=== PATIENT | male | born 1980 | race Caucasian/White ===

== ENCOUNTER 2016-11-18 03:39 | Observation (INO) | payer SELFPAY ==
[2016-11-18] MEDS ORDERED: Midazolam 2 MG/2 ML VIAL ONE (03:40)
[2016-11-18 03:49] VITALS: BMI 23.6
[2016-11-18] MEDS ORDERED: Midazolam 2 MG/2 ML VIAL IM ONE (03:49)
[2016-11-18 04:06] LABS: BASO % 0.8 % (0.0-2.0); EOS # 0.1 K/uL (0.0-0.7); EOS % 1.4 % (0.0-4.0); HEMATOCRIT 42.2 % (35.0-51.0); LYMPH # 1.6 K/uL (1.0-4.3); LYMPH % 27.8 % (20.0-40.0); MEAN CELL VOLUME 90.6 fl (80.0-94.0); MEAN CORPUSCULAR HGB CONC 34.2 g/dL (33.0-37.0); MEAN PLATELET VOLUME 9.3 fl (7.2-11.7); MONO # 0.4 K/uL (0.0-0.8); MONO % 7.1 % (0.0-10.0); NEUT # 3.7 K/uL (1.8-7.0); NEUT % 62.9 % (50.0-75.0); NRBC % 0.2 % (0.0-0.0); RED CELL DISTRIBUTION WIDTH 12.8 % (11.5-14.5); WHITE BLOOD COUNT 5.9 K/uL (4.8-10.8)
[2016-11-18 04:13] LABS: ALB/GLOB RATIO 1.7 (1.0-2.1); ALCOHOL SERUM 231 mg/dl (0-10); ALKALINE PHOSPHATASE 74 U/L (38-126); ALT/SGPT 41 U/L (21-72); AST/SGOT 49 U/L (17-59); BLOOD UREA NITROGEN 10 mg/dl (9-20); CARBON DIOXIDE 16 mmol/L (22-30); CHLORIDE 108 mmol/L (98-107); GFR AFRICAN-AMERICAN > 60; GLUCOSE,RANDOM 125 mg/dL (75-110); POTASSIUM 3.7 MMOL/L (3.6-5.0); SODIUM 148 mmol/l (132-148); TOTAL PROTEIN 7.6 G/DL (6.3-8.2)
--- NOTE | 2016-11-18 04:55 | ED PDOC ---
HPI: Psych/Substance Abuse Time Seen by Provider: 11/18/16 03:41 Chief Complaint (Nursing): Alcohol Ingestion Chief Complaint (Provider): intoxicated, agitated and combative ED Caveat: Intoxicated History Per: EMS (police) History/Exam Limitations: intoxication Onset/Duration Of Symptoms: Unknown Current Symptoms Are (Timing): Still Present Modifying Factor(s): Alcohol Severity: Severe Associated Symptoms: Agitation, Paranoia Involuntary Hold By: Local Law Enforcement Additional Complaint(s): 36yo male arrives under police custody per report EMS called to apartment for intoxicated combative male. On arrival to ED patient w poor insight, paranoid and combative, attempting to bite staff and spit. History limited due to agitation. Per police no reports of trauma. Past Medical History Reviewed: Historical Data, Nursing Documentation, Vital Signs Vital Signs: Last Vital Signs Temp Pulse 87 11/18/16 04:26 Resp 16 11/18/16 04:26 BP 99/72 L 11/18/16 04:26 Pulse Ox 96 11/18/16 04:26 - Medical History PMH: Denies: Diabetes, Hepatitis, HIV, HTN, Seizures, Sexually Transmitted Disease Other PMH: unknown/ unable to obtain - Surgical History Other surgeries: unable to obtain - Family History Family History: States: Unknown Family Hx - Living Arrangements Living Arrangements: Other (unknown) - Allergies Allergies/Adverse Reactions: Allergies Allergy/AdvReac Type Severity Reaction Status Date / Time No Known Allergies Allergy Verified 05/28/16 00:00 Review of Systems Review Of Systems: ROS cannot be obtained secondary to pt's inabilty to answer questions. Physical Exam - Reviewed Nursing Documentation Reviewed: Yes Vital Signs Reviewed: Yes - Physical Exam Appears: Positive for: Uncomfortable (agitated and screaming, physically assaultive towards staff and police) Head Exam: Positive for: ATRAUMATIC, NORMAL INSPECTION, NORMOCEPHALIC Skin: Positive for: Warm, Diaphoresis (mild given agitation). Negative for: Cyanosis Eye Exam: Positive for: Normal appearance, EOMI, PERRL. Negative for: Periorbital swelling ENT: Positive for: Normal ENT Inspection Neck: Positive for: Normal, Painless ROM Cardiovascular/Chest: Positive for: Regular Rate, Rhythm Respiratory: Positive for: CNT, Normal Breath Sounds Gastrointestinal/Abdominal: Positive for: Bowel Sounds, Soft. Negative for: Tenderness Back: Positive for: Normal Inspection Extremity: Positive for: Normal ROM, Other (scattered abrasions). Negative for : Deformity, Swelling Neurologic/Psych: Positive for: Alert, Mood/Affect (agitated), Gait (unable to assess), Other (poor insight, strength 5/5 all ext). Negative for: Motor/ Sensory Deficits, Aphasia - Laboratory Results Result Diagrams: 11/18/16 04:03 11/18/16 04:03 - ECG O2 Sat by Pulse Oximetry: 96 Medical Decision Making Medical Decision Making: pt arrived in restraints from police and transferred to [facility], required relief of agitation with haldol and versed (ativan not currently available in hospital). SPO2 maintained 96%. Restraints maintained until medications relieved agitation , then removed. Prior charts reviewed for further history. Bloodwork ordered and reviewed. etoh elevated. Chem c/w mild dehydration. Disposition - Clinical Impression Clinical Impression: Alcohol abuse, Agitation - Patient ED Disposition Is Patient to be Admitted: Transfer of Care - Disposition Disposition: Transfer of Care Disposition Time: 07:00 Condition: FAIR Patient Signed Over To: Aarti Solomon Handoff Comments: pending sobriety and re-eval, dispo.
--- NOTE | 2016-11-18 07:12 | ED PDOC ---
- Laboratory Results Result Diagrams: 11/18/16 04:03 11/18/16 04:03 - ECG O2 Sat by Pulse Oximetry: 96 Medical Decision Making Medical Decision Making: Time: 07 Patient signed out by Dr. York pending sobriety. Patient is in custody of police, pending medical and psychiatric clearance Time: 07 Patient awoke from sleep, became aggressive and violent towards staff. Placed in restraints for patient and staff safety. Time: 1240 CT results reviewed PROCEDURE: CT HEAD WITHOUT CONTRAST. HISTORY: scalp contusion COMPARISON: None available. TECHNIQUE: Axial computed tomography images were obtained through the head/brain without intravenous contrast. Radiation dose: Total exam DLP = 858.46 mGy-cm. FINDINGS: HEMORRHAGE: No intracranial hemorrhage. BRAIN: No mass effect or edema. No atrophy or chronic microvascular ischemic changes. VENTRICLES: Unremarkable. No hydrocephalus. CALVARIUM: Unremarkable. PARANASAL SINUSES: Unremarkable as visualized. No significant inflammatory changes. MASTOID AIR CELLS: Unremarkable as visualized. No inflammatory changes. OTHER FINDINGS: None. IMPRESSION: No evidence of acute intracranial hemorrhage intracranial collection mass effect or midline shift. 1430 Pt is alert and awake . Ambulatory with steady gait. Pt is cleared for discharge by Dr Smith with dx ODD. Scribe Attestation: Documented by Alethea Ramirez acting as a scribe for Aarti Solomon MD MD Scribe Attestation: All medical record entries made by the Scribe were at my direction and personally dictated by me. I have reviewed the chart and agree that the record accurately reflects my personal performance of the history, physical exam, medical decision making, and the department course for this patient. I have also personally directed, reviewed, and agree with the discharge instructions and disposition. Disposition - Clinical Impression Clinical Impression: Alcohol abuse, Agitation, Oppositional defiant disorder - POA Present On Arrival: None - Disposition Disposition: Routine/Home Disposition Time: 14:56 Condition: FAIR ED OBSERVATION Date of observation admission: 11/18/16 Time of observation admission: 07:00 - Progress Note Progress Note: 11/18/16 Time: 719 Patient awoke from sleep, became aggressive and violent towards staff. Placed in restraints for patient and staff safety.
[2016-11-18 07:31] VITALS: RESP 18; TEMP 98.2
--- NOTE | 2016-11-18 12:43 | CT ---
PROCEDURE: CT HEAD WITHOUT CONTRAST. HISTORY: scalp contusion COMPARISON: None available. TECHNIQUE: Axial computed tomography images were obtained through the head/brain without intravenous contrast. Radiation dose: Total exam DLP = 858.46 mGy-cm. FINDINGS: HEMORRHAGE: No intracranial hemorrhage. BRAIN: No mass effect or edema. No atrophy or chronic microvascular ischemic changes. VENTRICLES: Unremarkable. No hydrocephalus. CALVARIUM: Unremarkable. PARANASAL SINUSES: Unremarkable as visualized. No significant inflammatory changes. MASTOID AIR CELLS: Unremarkable as visualized. No inflammatory changes. OTHER FINDINGS: None. IMPRESSION: No evidence of acute intracranial hemorrhage intracranial collection mass effect or midline shift.
[2016-11-18 15:59] VITALS: BP 123/85; PULSE 65; O2SAT 99
== END 2016-11-18 14:56 | disposition home or self-care (01) ==
LOC: H.ER 03:39 → H.EROBSV 07:50
PROVIDERS: ADMIT Emergency Medicine; ATTEND Emergency Medicine
DX: F10.10 Alcohol abuse, uncomplicated (principal); F91.3 Oppositional defiant disorder; R45.1 Restlessness and agitation; Z78.1 Physical restraint status
CPT/HCPCS: 70450; 80053; 82948; 84484; 85025; 96372; 99284; G0378; G0480; J1630; J2250

== ENCOUNTER 2017-02-02 13:40 | Emergency (ER) | payer OTHER ==
[2017-02-02 13:40] VITALS: BMI 23.6
[2017-02-02 13:48] VITALS: BP 117/67; PULSE 77; RESP 16; TEMP 97.5; O2SAT 98
--- NOTE | 2017-02-02 14:09 | ED PDOC ---
Lower Extremity Pain/Injury Time Seen by Provider: 02/02/17 13:55 Chief Complaint (Nursing): Lower Extremity Problem/Injury Chief Complaint (Provider): right knee pain History Per: Patient History/Exam Limitations: no limitations Onset/Duration Of Symptoms: Days (yesterday, 02/01/2017. ) Current Symptoms Are (Timing): Still Present Additional Complaint(s): 36 y/o male presents to the emergency department with a complaint of a right knee pain s/p falling down a flight of stairs at 14:00. Patient denies head injury or loss of consciousness. He did not seek medical attention at time of fall yesterday. He presents today complaining of pain and swelling to right knee and states he cannot bend his knee without severe pain. No medicine taken for pain relief. Patient denies numbness or tingling to right lower extremity. PMD: None Past Medical History Reviewed: Historical Data, Nursing Documentation, Vital Signs Vital Signs: Last Vital Signs Temp 97.5 F L 02/02/17 13:46 Pulse 77 02/02/17 13:46 Resp 16 02/02/17 13:46 BP 117/67 02/02/17 13:46 Pulse Ox 98 02/02/17 13:46 - Medical History PMH: No Chronic Diseases - Surgical History Surgical History: No Surg Hx - Family History Family History: States: No Known Family Hx - Living Arrangements Living Arrangements: With Family - Social History Current smoker - smoking cessation education provided: Yes (Occasional) Alcohol: Occasional Drugs: Denies - Home Medications Home Medications: Ambulatory Orders Medication Instructions Recorded Ibuprofen [Motrin Tab] 800 mg PO Q8 PRN #20 tab 02/02/17 - Allergies Allergies/Adverse Reactions: Allergies Allergy/AdvReac Type Severity Reaction Status Date / Time No Known Allergies Allergy Verified 05/28/16 00:00 Wells Criteria for PE - Wells Criteria for Pulmonary Embolism Clinical Signs and Symptoms of DVT: No P.E is #1 Diagnosis, or Equally Likely: No Heart Rate >100: No Immobilization at least 3 days;Surgery previous 4 weeks: No Previous, objectively diagnosed PE or DVT: No Hemoptysis: No Malignancy w/treatment within 6 months, or palliative: No Total Score: 0 Review of Systems ROS Statement: Except As Marked, All Systems Reviewed And Found Negative Musculoskeletal: Positive for: Other (Right knee pain) Physical Exam - Reviewed Nursing Documentation Reviewed: Yes Vital Signs Reviewed: Yes - Physical Exam Appears: Positive for: Well, Non-toxic, No Acute Distress Head Exam: Positive for: ATRAUMATIC, NORMAL INSPECTION, NORMOCEPHALIC Skin: Positive for: Normal Color, Warm. Negative for: Rash Eye Exam: Positive for: Normal appearance Extremity: Positive for: Other (Diffuse tenderness and swelling to right knee region with decreased range of motion, tenderness, normal distal sensation to right lower extremity) Neurologic/Psych: Positive for: Alert, Oriented - ECG O2 Sat by Pulse Oximetry: 98 (RA) Pulse Ox Interpretation: Normal - Other Rad Right knee x-ray X-Ray: Interpreted by Me, Viewed By Me X-Ray Interpretation: Soft tissue swelling, no fracture or dislocation Medical Decision Making Medical Decision Making: Time: 13:55 Initial Impression: 36-year-old male with traumatic injury to right knee Initial Plan: --Knee 3 Views RT (RAD) --Motrin 600 mg PO --Revaluation Time: 15:07 --Knee x-ray show no abnormal findings. Patient given crutches and knee immobilizer. He states the pain is improved after Motrin dose. Prescription for Motrin provided. Patient was referred to orthopedist [facility] and advised to follow-up in 2-3 days. Scribe Attestation: Documented by Leanne Mike, acting as a scribe for Juliann Gardner PA-C. Provider Scribe Attestation: All medical record entries made by the Scribe were at my direction and personally dictated by me. I have reviewed the chart and agree that the record accurately reflects my personal performance of the history, physical exam, medical decision making, and the department course for this patient. I have also personally directed, reviewed, and agree with the discharge instructions and disposition. Procedures - Splinting Location: right knee Pre-Made Type: knee immobilizer Pre-Proc Neuro Vasc Exam: normal Post-Proc Neuro Vasc Exam: normal Disposition - Clinical Impression Clinical Impression: Knee sprain, Knee contusion - Patient ED Disposition Is Patient to be Admitted: No Counseled Patient/Family Regarding: Studies Performed, Diagnosis, Need For Followup, Rx Given - Disposition Referrals: Yanet Rg MD [Staff Provider] - Disposition: Routine/Home Disposition Time: 15:15 Condition: STABLE Additional Instructions: Ice, rest and elevate affected area. Take prescription meds as directed as needed for pain. Follow-up with orthopedist in 2-3 days. Prescriptions: Ibuprofen [Motrin Tab] 800 mg PO Q8 PRN #20 tab PRN Reason: Pain, Moderate (4-7) Instructions: Knee Sprain (ED), Knee Immobilizer (ED), Crutch Instructions (ED) , Contusion in Adults (ED)
--- NOTE | 2017-02-02 15:24 | RAD ---
PROCEDURE: Right Knee Radiographs. HISTORY: COMPARISON: None available. FINDINGS: BONES: No acute displaced fracture. JOINTS: No dislocation. JOINT EFFUSION: Small suprapatellar joint effusion. OTHER FINDINGS: Soft tissue swelling. No evidence of radiopaque foreign body. IMPRESSION: Soft tissue swelling. Small suprapatellar joint effusion. No acute displaced fracture or dislocation identified. If symptoms persist, or if there is continued clinical concern, x-ray follow-up in 7-10 days should be considered. Study marked for PA review.
== END 2017-02-02 15:40 | disposition home or self-care (01) ==
LOC: H.ER 13:40
DX: S83.401A Sprain of unspecified collateral ligament of right knee, initial encounter (principal); W10.9XXA Fall (on) (from) unspecified stairs and steps, initial encounter; Y92.89 Other specified places as the place of occurrence of the external cause